=== PATIENT | female | born 1955 | race Caucasian/White ===

== ENCOUNTER 2023-01-16 20:03 | Inpatient (IN) | payer BC, OTHER ==
[~2023-01-16] VITALS: Ht 167.6 cm; Wt 64.4 kg
[~2023-01-16 20:03] MED LIST: ASPI-605 PO; ATOR40TA PO; CLOP75TA15 PO; Losartan Potassium PO
--- NOTE | 2023-01-16 20:15 | NUR ---
Dr. Almaguer at bedside for [facility].
[2023-01-16] MEDS ORDERED: NITROGLYCERIN OINT 1 GM PACKET TP ONE ×2 (20:26→20:30)
[2023-01-16] MEDS ORDERED: SIMETHICONE 80 MG TAB.CHEW ONE (20:26)
[2023-01-16] MEDS ORDERED: ASPIRIN 81 MG TAB.CHEW ONE (20:26)
[2023-01-16] MEDS ORDERED: SIMETHICONE 80 MG TAB.CHEW PO ONE (20:30)
[2023-01-16] MEDS ORDERED: ASPIRIN 81 MG TAB.CHEW PO ONE (20:30)
[2023-01-16 20:32] VITALS: BP 166/81
[2023-01-16 20:35] LABS: HEMATOCRIT 40.5 % (31.2-41.9); MEAN CORPUSCULAR HEMOGLOBIN 31.1 uug (24.7-32.8); MEAN CORPUSCULAR VOLUME 93.6 fL (75.5-95.3); PLATELET COUNT (AUTO) 311 K/uL (179-408)
--- NOTE | 2023-01-16 20:40 | NUR ---
Xray at bedside.
[2023-01-16 20:46] LABS: CARBON DIOXIDE 27 mmol/L (21-32); CHLORIDE 99 mmol/L (98-107); CREATININE 0.8 mg/dL (0.6-1.3); GLUCOSE 275 mg/dL (74-106); POTASSIUM 4.4 mmol/L (3.5-5.1); UREA NITROGEN, BLOOD 18 mg/dL (7-18)
[2023-01-16 20:58] LABS: ALANINE AMINOTRANSFERASE 28 U/L (14-59); ALKALINE PHOSPHATASE 85 U/L (50-136); ASPARTATE AMINOTRANSFERASE 17 U/L (15-37); BILIRUBIN,DIRECT < 0.1 mg/dL (0.0-0.2); BILIRUBIN,TOTAL 0.5 mg/dL (0.2-1.0); TOTAL PROTEIN, SERUM 7.9 g/dL (6.4-8.2)
[2023-01-16] MEDS ORDERED: SIMV10TA98 PO (21:07)
[2023-01-16] MEDS ORDERED: METO-356 PO (21:07)
--- NOTE | 2023-01-16 21:31 | NUR ---
Called [facility] to page Flora Cook DNP.
--- NOTE | 2023-01-16 22:06 | NUR ---
Called [facility] to repage Flora Cook DNP.
--- NOTE | 2023-01-16 22:08 | NUR ---
Dr. Almaguer on panel call with Flora Cook DNP.
--- NOTE | 2023-01-16 22:18 | NUR ---
Report given to Lisa QUINONEZ Tele.
--- NOTE | 2023-01-16 23:18 | NUR ---
Patient admitted from ER had been transferred to [facility] floor around 2229. However, daughter who is a RN requested to stayed overnight by mother side. Patient have been informed that per hospital policy family members are not allowed to stayed with patient overnight. They decided to leave, despite medical advise. Physician have been made aware.
== END 2023-01-16 23:15 | disposition left against medical advice (07) | DRG 313 ==
LOC: ER 20:03 → TELE3 21:33
PROVIDERS: ADMIT Nurse Practitioner Acute Care; ATTEND Nurse Practitioner Acute Care
DX: R07.9 Chest pain, unspecified (principal); I25.2 Old myocardial infarction; I11.9 Hypertensive heart disease without heart failure; I25.10 Atherosclerotic heart disease of native coronary artery without angina pectoris; Z79.82 Long term (current) use of aspirin; E11.9 Type 2 diabetes mellitus without complications; E78.5 Hyperlipidemia, unspecified; Z20.822 Contact with and (suspected) exposure to COVID-19; Z87.891 Personal history of nicotine dependence; Z95.5 Presence of coronary angioplasty implant and graft; Z79.899 Other long term (current) drug therapy; Z79.02 Long term (current) use of antithrombotics/antiplatelets
CPT/HCPCS: 36415; 71045; 84484; 85025; 93005; A4663; G0378